=== PATIENT | female | born 1965 | race Caucasian/White ===

== ENCOUNTER 2021-06-21 06:43 | Outpatient (CLI) | payer OTHER ==
[~2021-06-21] VITALS: Ht 162.6 cm; Wt 93.6 kg
[2021-06-21] VITALS (8 sets, daily range): BP systolic 108–139; BP diastolic 67–80; PULSE 65–76; TEMP 98.1
[2021-06-21] MEDS ORDERED: CYMBALTA 20MG20 MG PO (07:11)
[2021-06-21] MEDS ORDERED: NEURONTIN100 MG/CAP PO (07:12)
[2021-06-21] MEDS ORDERED: FLEXERIL 1010 MG/TAB PO (07:12)
--- NOTE | 2021-06-21 09:45 | NUR ---
SEE MERGE DOCUMENTATION FOR MEDICATION ADMINISTRATION TIMES AND INTRA/POST PROCEDURE SEDATION ASSESSMENTS.
--- NOTE | 2021-06-21 12:15 | NUR ---
DC instructions reviewed with pt, she expresses understanding. Pt has been steady on feet around room. Reports mild "bone pain" but states overall discomfort to back much improved following procedure. INT DC'd with catheter intact. She is assisted out to sister's car by wheelchair.
== END 2021-06-21 12:24 | disposition home or self-care (01) ==
LOC: COL.CAR 06:43
DX: M48.56XA Collapsed vertebra, not elsewhere classified, lumbar region, initial encounter for fracture (principal); M79.7 Fibromyalgia; G57.20 Lesion of femoral nerve, unspecified lower limb; M54.30 Sciatica, unspecified side
CPT/HCPCS: C1713; J2250; J3010; J7120